=== PATIENT | female | born 1995 | race American Indian/Alaskan Native ===

== ENCOUNTER 2022-02-03 12:29 | Emergency (ER) | payer SELFPAY ==
[2022-02-03 13:51] VITALS: BP 128/74
--- NOTE | 2022-02-03 18:12 | Emergency Department Report ---
- General Chief Complaint: Earache Stated Complaint: EAR, AND HEADACHE Source: patient Mode of arrival: Ambulatory Limitations: No Limitations - History of Present Illness Initial Comments: 26-year-old female presents to the ED complaining of headache, sinus pressure, cough, and earache x2-week. Patient states she has been treating herself with [id number] medication without any relief. Patient denies any fever chills nausea or vomiting at present time. Patient states headache is a 5 out of 10. Patient denies any shortness of breath or chest pain at present time. Patient is alert and oriented x3. No acute distress noted. No ill appearance noted. MD Complaint: cough, nasal congestion, sinus pain Onset/Timin -: Gradual Severity: moderate Severity scale (0 -10): 5 Quality: dull Consistency: intermittent Improves With: nothing Worsens With: nothing Associated Symptoms: denies other symptoms Treatments Prior to Arrival: none - Related Data Previous Rx's Medication Instructions Recorded Last Taken Type Amoxicillin/K Clav Tab [Augmentin 1 tab PO Q12HR 10 Days #20 tab 02/03/22 Unknown Rx 875 mg] Brompheniramine/Pseudoephed/Dm 5 ml PO BID 5 Days #118 ml 02/03/22 Unknown Rx [Bromfed Dm Cough Syrup] predniSONE [Deltasone] 50 mg PO QDAY 5 Days #5 tab 02/03/22 Unknown Rx Allergies Allergy/AdvReac Type Severity Reaction Status Date / Time No Known Allergies Allergy Verified 02/03/22 13:51 ED Review of Systems ROS: Stated complaint: EAR, AND HEADACHE Other details as noted in HPI Constitutional: denies: chills, fever Eyes: denies: eye pain, eye discharge, vision change ENT: denies: ear pain, throat pain Respiratory: cough. denies: shortness of breath, wheezing Cardiovascular: denies: chest pain, palpitations Endocrine: no symptoms reported Gastrointestinal: denies: abdominal pain, nausea, diarrhea Genitourinary: denies: urgency, dysuria, discharge Musculoskeletal: denies: back pain, joint swelling, arthralgia Skin: denies: rash, lesions Neurological: denies: headache, weakness, paresthesias Psychiatric: denies: anxiety, depression Hematological/Lymphatic: denies: easy bleeding, easy bruising ED Past Medical Hx - Past Medical History Previous Medical History?: No - Surgical History Past Surgical History?: No - Medications Home Medications: Home Medications Medication Instructions Recorded Confirmed Last Taken Type Amoxicillin/K Clav Tab [Augmentin 1 tab PO Q12HR 10 Days #20 tab 02/03/22 Unknown Rx 875 mg] Brompheniramine/Pseudoephed/Dm 5 ml PO BID 5 Days #118 ml 02/03/22 Unknown Rx [Bromfed Dm Cough Syrup] predniSONE [Deltasone] 50 mg PO QDAY 5 Days #5 tab 02/03/22 Unknown Rx ED Physical Exam - General Limitations: No Limitations General appearance: alert, in no apparent distress - Head Head exam: Present: atraumatic, normocephalic - Eye Eye exam: Present: normal appearance - ENT ENT exam: Present: mucous membranes moist - Expanded ENT Exam Expanded TM/Canal exam: Mastoid Tenderness: Right TM, Left TM (Frontal) - Neck Neck exam: Present: normal inspection - Respiratory Respiratory exam: Present: normal lung sounds bilaterally. Absent: respiratory distress - Cardiovascular Cardiovascular Exam: Present: regular rate, normal rhythm. Absent: systolic murmur, diastolic murmur, rubs, gallop - GI/Abdominal GI/Abdominal exam: Present: soft, normal bowel sounds - Extremities Exam Extremities exam: Present: normal inspection - Back Exam Back exam: Present: normal inspection - Neurological Exam Neurological exam: Present: alert, oriented X3 - Psychiatric Psychiatric exam: Present: normal affect, normal mood - Skin Skin exam: Present: warm, dry, intact, normal color. Absent: rash ED Course Vital Signs 02/03/22 13:47 Temperature 98.9 F Pulse Rate 90 Respiratory 14 Rate Blood Pressure 128/74 O2 Sat by Pulse 98 Oximetry ED Medical Decision Making - Medical Decision Making 26-year-old female presents to the ED complaining of headache, sinus pressure, cough, and earache x2-week. Patient states she has been treating herself with [id number] medication without any relief. Patient denies any fever chills nausea or vomiting at present time. Patient states headache is a 5 out of 10. Patient denies any shortness of breath or chest pain at present time. Patient is alert and oriented x3. No acute distress noted. No ill appearance noted. Physical examination patient has tenderness noted to the frontal cavity, postnasal drip , and middle ear effusion. Rechecked the patient is resting quietly , comfortable and feeling better. I discussed the results of diagnostic study, my clinical impression and the plan for further treatment with the patient. Patient agrees with plan and discharge at this present time. All question addressed. I have given the patient instruction regarding a diagnosis ,expectation ,follow- up and return precaution. I explained to the patient that emergent condition may arise and to return to the ED for new worsen and any new persisting condition. I have explained the importance of following up with the primary care physician or referral physician listed below has instructed. The patient verbalized understanding of discharge instruction. Critical care attestation.: If time is entered above; I have spent that time in minutes in the direct care of this critically ill patient, excluding procedure time. ED Disposition Clinical Impression: Acute sinusitis Qualifiers: Sinusitis location: frontal Recurrence: non-recurrent Qualified Code(s): J01.10 - Acute frontal sinusitis, unspecified Disposition: 01 HOME / SELF CARE / HOMELESS Is pt being admited?: No Does the pt Need Aspirin: No Condition: Stable Instructions: Sinusitis, Adult, [id number] Additional Instructions: Take medication as prescribed Return the ED for any worsening symptom Prescriptions: Amoxicillin/K Clav Tab [Augmentin 875 mg] 1 tab PO Q12HR 10 Days #20 tab Brompheniramine/Pseudoephed/Dm [Bromfed Dm Cough Syrup] 5 ml PO BID 5 Days #118 ml predniSONE [Deltasone] 50 mg PO QDAY 5 Days #5 tab Referrals: [facility] [Provider Group] - 3-5 Days Forms: Work/School Release Form(ED) Time of Disposition: 18:14
== END 2022-02-03 18:54 | disposition home or self-care (01) ==
LOC: ED 12:29
DX: J01.90 Acute sinusitis, unspecified (principal); H92.01 Otalgia, right ear
CPT/HCPCS: 99282